=== PATIENT | female | born 1975 | race Two or more races ===

== ENCOUNTER 2020-01-16 11:28 | Emergency (ER) | payer OTHER, SELFPAY ==
[~2020-01-16] VITALS: Ht 162.6 cm; Wt 84.1 kg
--- NOTE | 2020-01-16 11:45 | NUR ---
THIS IS A 44 YO FEMALE WHO PRESENTS TO THE ER C/O COUGH X 7 DAYS WITH INCREASING SOB. PT HAS HX OF ASTHMA. PT AO X 4. SKIN PWD. RESP EVEN AND UNLABORED. PT ABLE TO SPEAK IN FULL 7-10 WORD SENTENCES W/O DIFFICULT. CALL LIGHT WITHIN REACH. WILL CONT TO MONITOR PT.
[2020-01-16 12:28] VITALS: BP 123/87
== END 2020-01-16 12:31 | disposition home or self-care (01) ==
LOC: ED 12:03
DX: J45.901 Unspecified asthma with (acute) exacerbation (principal); B34.9 Viral infection, unspecified
CPT/HCPCS: 71045; 93005; 99283